=== PATIENT | female | born 1975 | race Caucasian/White ===

== ENCOUNTER → 2018-04-11 | Outpatient (CLI) | payer OTHER | LOC: CIMAGING 10:21 | PROVIDERS: ATTEND Internal Medicine | DX: R10.9 Unspecified abdominal pain (principal) | CPT/HCPCS: 76705-PO ==

== ENCOUNTER → 2018-04-26 | Outpatient (CLI) | payer OTHER | LOC: FIMAGING 12:04 | PROVIDERS: ATTEND Internal Medicine | DX: R10.11 Right upper quadrant pain (principal); R11.0 Nausea; R93.89 Abnormal findings on diagnostic imaging of other specified body structures | CPT/HCPCS: 78227; A9537 ==

== ENCOUNTER 2018-05-19 05:42 | Day surgery (SDC) | payer OTHER ==
[2018-05-19] MEDS ORDERED: ceFAZolin 2 GM/DEXTROSE 100 ML IV ONE (05:45)
[2018-05-19] MEDS ORDERED: LR 1,000 ML IV ONE (05:46)
[2018-05-19] MEDS ORDERED: LIDOCAINE 1% 2 ML INJ ID PRN (05:53)
--- NOTE | 2018-05-19 06:45 | PDANEPAE ---
ANE History of Present Illness Gall bladder dz ANE Past Medical History - Cardiovascular History Hx Hypertension: No Hx Arrhythmias: No Hx Chest Pain: No Hx Coronary Artery / Peripheral Vascular Disease: No Hx CHF / Valvular Disease: No Hx Palpitations: No - Pulmonary History Hx COPD: No Hx Asthma/Reactive Airway Disease: No Hx Recent Upper Respiratory Infection: No Hx Oxygen in Use at Home: No Hx Sleep Apnea: No Sleep Apnea Screening Result - Last Documented: Negative - Neurologic History Hx Cerebrovascular Accident: No Hx Seizures: No Hx Dementia: No - Endocrine History Hx Diabetes: No - Renal History Hx Renal Disorders: Yes Renal History Comment: HX OF BLADDER INFECTIONS - Liver History Hx Hepatic Disorders: No - Neurological & Psychiatric Hx Hx Neurological and Psychiatric Disorders: No - Cancer History Hx Cancer: No - Congenital Disorder History Hx Congenital Disorders: No - GI History Hx Gastrointestinal Disorders: Yes Gastrointestinal History Comment: FLUCTUATES BETWEEN CONSTIPATION AND DIARRHEA - Other Health History Other Health History: WEARS GLASSES/ CONTACTS - Chronic Pain History Chronic Pain: No - Surgical History Prior Surgeries: WISDOM TEETH EXTRACTED IN EARLY ANE Review of Systems Review of Systems: - Exercise capacity METS (RN): 4 METS ANE Patient History - Allergies Allergies/Adverse Reactions: No Known Allergies Allergy (Verified 05/16/18 16:21) - Home Medications Home medications: home medication list seen and reviewed Home Medications: NK [No Known Home Meds] 05/16/18 [Last Taken Unknown] - NPO status NPO Status: no food or drink >8 hours NPO Since - Liquids (Date): 05/18/18 NPO Since - Liquids (Time): 23:00 NPO Since - Solids (Date): 05/18/18 NPO Since - Solids (Time): 19:00 - Anes Hx Anes Hx: no prior problems (No prior GA dental only) - Smoking Hx Smoking Status: Former smoker - Family Anes Hx Family Hx Anesthesia Complications: MOTHER GETS VIOLENTLY ILL WITH N/V ANE Labs/Vital Signs - Vital Signs Blood Pressure: 123/75 Heart Rate: 70 Respiratory Rate: 18 O2 Sat (%): 96 Height: 175.3 cm Weight: 87.9 kg ANE Physical Exam - Airway Neck exam: FROM Mallampati Score: Class 1 Mouth exam: normal dental/mouth exam - Pulmonary Pulmonary: no respiratory distress - Cardiovascular Cardiovascular: regular rate and rhythym - ASA Status ASA Status: I
--- NOTE | 2018-05-19 06:50 | PDHPUP ---
History & Physical Update H&P update statement: This history and physical update is based on an assessment of the patient which was completed after admission or registration (within 24 hours), but prior to the surgery/procedure. H&P update: H&P reviewed & patient examined, no change in patient's condition since H&P completed
[2018-05-19] MEDS ORDERED: MIDAZOLAM 2 MG/2 ML VIAL IVP ONE (06:52)
[2018-05-19] MEDS ORDERED: BUPIVACAINE 0.5% 30 ML SDV ONE (06:57)
[2018-05-19] MEDS ORDERED: SCOPOLAMINE HYDROBROMIDE 1 MG/3 DAYS PATCH TD SCH (07:00)
[2018-05-19] MEDS ORDERED: PROPOFOL 200 MG/20 ML VIAL ONE (07:03)
[2018-05-19] MEDS ORDERED: LIDOCAINE 2% 2 ML INJ ONE (07:03)
[2018-05-19] MEDS ORDERED: fentaNYL 100 MCG/2 ML INJ ONE ×2 (07:03→08:18)
[2018-05-19] MEDS ORDERED: GLYCOPYRROLATE 0.2 MG/1 ML VIAL ONE (07:05)
[2018-05-19] MEDS ORDERED: DEXAMETHASONE 4 MG/ML VIAL ONE (07:44)
[2018-05-19] MEDS ORDERED: ONDANSETRON 4 MG/2 ML VIAL ONE (07:45)
[2018-05-19] MEDS ORDERED: HYDROmorphONE/DILAUDID 2 MG/ML INJ IVP PRN (07:53)
[2018-05-19] MEDS ORDERED: ONDANSETRON 4 MG/2 ML VIAL IVP PRN (07:53)
[2018-05-19] MEDS ORDERED: PROMETHAZINE HCL 25 MG/ML INJ IVP PRN (07:53)
[2018-05-19] MEDS ORDERED: NALOXONE HCL 0.4 MG/ML INJ IVP PRN (07:53)
[2018-05-19] MEDS ORDERED: NEOSTIGMINE METHYLSULFATE 5 MG/5 ML SYR ONE (07:57)
[2018-05-19] MEDS ORDERED: KETOROLAC 30 MG/1 ML SDV ONE (08:10)
--- NOTE | 2018-05-19 08:10 | POSTOPPROG ---
Post Op Note Date of Operation: 05/19/18 Surgeon: Anjana Cisneros Anesthesiologist: steve Anesthesia: GET(General Endotracheal) Pre-op Diagnosis: biliary dyskinesia Post-op Diagnosis: same Indication: 42 yo with biliary dyskinesia Procedure: lap micah Findings: no unusual Inf/Abcess present in the surg proc area at time of surgery?: No Specimen(s): gb
--- NOTE | 2018-05-19 08:17 | POSTANESTH ---
Post Anesthetic Evaluation Cardiovascular Status: Normal, Stable Respiratory Status: Normal, Stable Level of Consciousness/Mental Status: Can Participate in Eval Pain Control: Adequate, Prn Tx Ordered Nausea/Vomiting Control: Adequate, Prn Tx Ordered Complications Possibly Related to Anesthesia: None Noted
[2018-05-19] MEDS: fentaNYL 100 MCG/2 ML INJ IVP PRN ×2 (08:33→08:41)
[2018-05-19] MEDS ORDERED: traMADol 50 MG TAB ONE (09:59)
[2018-05-19] MEDS ORDERED: traMADol 50 MG TAB PO ONE (10:00)
[2018-05-19 11:14] VITALS: BP 115/78
--- NOTE | 2018-05-19 15:04 | GOP ---
DATE OF OPERATION: 05/19/2018 SURGEON: Anjana Cisneros MD ANESTHESIA: General. ANESTHESIOLOGIST: Ti Mcgraw MD. PREOPERATIVE DIAGNOSIS: Biliary dyskinesia. POSTOPERATIVE DIAGNOSIS: Biliary dyskinesia. PROCEDURE PERFORMED: Laparoscopic cholecystectomy. FINDINGS: No unusual findings. ESTIMATED BLOOD LOSS: 5 cc. INDICATIONS: The patient is a 42-year-old woman with biliary dyskinesia. DESCRIPTION OF PROCEDURE: Patient was brought into the operating room and placed supine on the table, and general anesthesia was administered. Her abdomen was prepped and draped in the usual sterile fashion. I infiltrated all sites with 0.5% Marcaine prior to making incisions. I made an incision at her umbilicus. I elevated it. I inserted the Veress needle. It passed the hanging drop test. Her abdomen insufflated easily to a pressure of 15 mmHg. I placed a 5 mm trocar with a camera at this site. Under direct vision, I placed a 10 mm subxiphoid trocar and two 5 mm trocars along the right costal margin. I lifted her gallbladder cephalad and laterally to expose the triangle of Calot. I skeletonized the cystic artery and the cystic duct so that they were the only two structures directly entering the gallbladder. I singly clipped each of the structures toward the gallbladder, doubly clipped distally, and transected with scissors. Gallbladder was removed from the gallbladder fossa with electrocautery. Hemostasis achieved on the liver bed, clips in satisfactory position. The ports were removed under direct vision. The abdomen was allowed to desufflate. Fascia at the 10 mm trocar site was closed with 0 Vicryl. Skin closed with 4-0 Monocryl. Dermabond applied. She was awakened in the operating room, extubated, and transferred to PACU in stable condition. /[id number]/MODL MTDD
[2018-05-22] MEDS ORDERED: PATCH REMOVAL 1 EA PATCH TD SCH (06:53)
== END 2018-05-19 11:25 | disposition home or self-care (01) ==
LOC: FSGY 05:42
PROVIDERS: ATTEND Surgery
PROC: 0FT44ZZ Resection of Gallbladder, Percutaneous Endoscopic Approach (ICD-10-PCS; principal; 2018-05-19 07:15)
DX: K82.8 Other specified diseases of gallbladder (principal); Z87.440 Personal history of urinary (tract) infections; Z87.891 Personal history of nicotine dependence
CPT/HCPCS: J0690; J1100; J1885; J2250; J2405; J2704; J2710; J3010